=== PATIENT | female | born 1970 | race Hispanic/Latino ===

== ENCOUNTER 2019-10-26 08:03 | Emergency (ER) | payer OTHER ==
[2019-10-26] MEDS ORDERED: Acetaminophen 500 MG TAB ONE (08:58)
[2019-10-26] MEDS ORDERED: Ondansetron ODT 4 MG TAB ONE (08:58)
[2019-10-27 14:30] LABS: SARS-CoV-2 MS2 Positive; SARS-CoV-2 N Gene Positive; SARS-CoV-2 S Gene Positive; SARS-CoV-2 orf1ab Positive
== END 2019-10-26 09:10 | disposition home or self-care (01) ==
LOC: ERS 08:03
DX: U07.1 COVID-19 (principal); F17.210 Nicotine dependence, cigarettes, uncomplicated
CPT/HCPCS: 87635; 99283; Q0162; U0003